=== PATIENT | female | born 1980 | race Caucasian/White ===

== ENCOUNTER 2024-11-08 00:14 | Outpatient (CLI) | payer BC, SELFPAY ==
--- NOTE | 2024-11-08 | DI.MRI_ITS ---
Exam(s) MR UPPER JOINT LT WO EXAM: MR UPPER JOINT LT WO CLINICAL HISTORY: Lt shoulder pain, unspecified chronicity, M25.512; looking for rotator cuff. TECHNIQUE: Multiplanar multisequence MRI was performed. COMPARISON: The exam is interpreted without benefit of comparison plain films. FINDINGS: BONES: There is no fracture or contusion pattern. Degenerative subchondral cysts noted in the gleno id. Small degenerative cysts noted in the humeral head. JOINTS:The acromioclavicular joint is normal. The glenohumeral joint and shows cartilage thinning and some periarticular spurring. There is no arti nt effusion peer TENDONS: Supraspinatus: Unremarkable. Infraspinatus: Unremarkable. Subscapularis: Unremarkable. Teres Minor: Unremarkable. Biceps and [place]: Unremarkable. MUSCLES: Unremarkable. GLENOID LABRUM: No visible labral tear. SOFT TISSUES: Unremarkable. BURSAE: Subacromial and subdeltoid bursae show no fluid.. IMPRESSION: Degenerative changes of the glenohumeral joint. No evidence of rotator cuff tear. DATA REPOSITORY:
== END 2024-11-08 00:34 ==
LOC: DI 00:14
PROVIDERS: Visit Provider Nurse Practitioner Family
DX: M19.012 Primary osteoarthritis, left shoulder (principal)
CPT/HCPCS: 73221

== ENCOUNTER 2024-12-01 14:06 | Outpatient (CLI) | payer BC, SELFPAY | END 2024-12-01 14:07 | disposition home or self-care (01) | PROVIDERS: PCP Nurse Practitioner Family; Visit Provider Nurse Practitioner Family | DX: R00.2 Palpitations (principal) | CPT/HCPCS: 93270 ==

== ENCOUNTER 2024-12-20 15:02 | Outpatient (CLI) | payer BC, SELFPAY ==
--- NOTE | 2024-12-20 14:30 | DI.RAD_ITS ---
Exam(s) XR SHOULDER LT COMPLETE 2+V EXAM: XR SHOULDER LT COMPLETE 2+V CLINICAL HISTORY: LEFT SHOULDER PAIN. TECHNIQUE: 2D digital imaging was performed. Two views. COMPARISON: No exams were available for comparison FINDINGS: BONES: No acute fracture is present. No bony destructive lesion is seen. JOINTS: No dislocation present. Mild narrowing of the glenohumeral joint. Mild periarticular spurring. The AC joint shows no significant spurring. SOFT TISSUE: Normal. IMPRESSION: Mild degenerative changes of the glenohumeral joint. DATA REPOSITORY: RADIATION DOSE DELIVERED:
== END 2024-12-20 15:03 | disposition home or self-care (01) ==
LOC: DIORS 15:03
PROVIDERS: PCP Nurse Practitioner Family; Visit Provider Student in an Organized Health Care Education/Training Program
DX: M25.512 Pain in left shoulder (principal); M19.012 Primary osteoarthritis, left shoulder
CPT/HCPCS: 73030

== ENCOUNTER 2025-01-18 03:13 | Outpatient (CLI) | payer BC, SELFPAY ==
--- NOTE | 2025-01-18 15:14 | DI.RAD_ITS ---
Exam(s) RF JOINT INJ. FLUORO GUID RAD EXAM: RF JOINT INJ. FLUORO GUID RAD CLINICAL HISTORY: L SHOULDER PAIN,arthritis lt glenohumeral joint,fluoro guided injection. The Patient has had persistent left shoulder pain. Noninvasive measures have been tried. To serve as both diagnostic and therapeutic, an injection under fluoroscopy was recommended. The risks of the procedure were discussed with their Orthopedic provider and the patient elected to proceed. TECHNIQUE: 2D and realtime digital imaging was performed. CONTRAST MATERIAL: Water soluble contrast was utilized. COMPARISON: No exams were available for comparison FINDINGS: The Patient was greeted in the fluoroscopy room. The correct side was identified and the consent was reviewed with the patient and was signed. The patient was properly positioned on the fluoroscopy table. The left shoulderwas then prepped and draped. The left shoulder injection starting point was i dentified by the bony landmarks and fluoroscopy. The skin and soft tissue in the tract of the injection was anesthetized with 0.25% Bupivacaine. A spinal needle was then inserted into the left shoulder joint at the level of the glenohumeral joint under fluoroscopic guidance. A small amount of Omnipaque solution was injected to confirm intraarticular placement. Once confirmed, the left shoulder was injected with 5cc of a solution containing 0.25% Bupivacaine and 40 mg of Depo-Medrol. A bandaid was placed on the injection site. The patient tolerated the procedure well and left the department in good condition. IMPRESSION: Successful left shoulder injection. RADIATION DOSE DELIVERED: Ka,r=4.22 mGy
[2025-01-18] MEDS: Bupivacaine 0.25% Pres-Free 10 ML VIAL IJ (15:17)
[2025-01-18] MEDS: Omnipaque 300 MG/ML 10 ML BTL IJ (15:19)
[2025-01-18] MEDS: methylPREDNISolone ACETATE 40 MG/ML VIAL IM (15:21)
== END 2025-01-18 03:33 ==
LOC: DI 03:13
PROVIDERS: PCP Nurse Practitioner Family; Visit Provider Student in an Organized Health Care Education/Training Program
DX: M19.012 Primary osteoarthritis, left shoulder (principal)
CPT/HCPCS: 20610; 77002; J0665; J1010